=== PATIENT | male | born 1995 | race Caucasian/White ===

== ENCOUNTER 2023-07-13 18:47 | Emergency (ER) | payer SELFPAY ==
[2023-07-13 18:55] VITALS: BP 129/85; PULSE 87; RESP 20; TEMP 98.1; BMI 27.4
[2023-07-13 20:12] LABS: EPI CELLS 1 /uL (0-25.1); HYALINE CASTS 0 /uL (0-3.1); URINE APPEARANCE CLEAR; URINE BACTERIA 2 /uL (0-1359); URINE BILIRUBIN NEGATIVE (NEGATIVE); URINE COLOR YELLOW; URINE GLUCOSE (UA) NEGATIVE (NEGATIVE); URINE KETONE NEGATIVE (NEGATIVE); URINE LEUK ESTERASE TRACE (NEGATIVE); URINE NITRITE NEGATIVE (NEGATIVE); URINE PROTEIN NEGATIVE (NEGATIVE); URINE RBC 4 /uL (0-23.9); URINE UROBILINOGEN 0.2 mg/dL (0.2-1.0); URINE WBC 44 /uL (0-25.8)
[2023-07-13 20:50] LABS: BASO % 0.9 % (0-2.0); EOS % 8.3 % (0-4.5); HEMATOCRIT 41.2 % (35.4-49); HEMOGLOBIN 14.2 GM/dL (11.7-16.9); LYMPH % 29.6 % (8-40); MCH 29.2 pg (25.7-33.7); MCHC 34.6 g/dl (32.0-35.9); MEAN CELL VOLUME 84.5 fl (80-96); MEAN PLT VOLUME 8.5 fl (7.5-11.1); MONO % 4.7 % (3.8-10.2); NEUT % 56.5 % (42.8-82.8); PLATELET COUNT 253 10^3/uL (134-434); RBC 4.87 M/mm3 (4.00-5.60); RDW 13.7 % (11.9-15.9); WHITE BLOOD COUNT 11.2 K/mm3 (4.0-10.0)
[2023-07-13 21:05] LABS: ALBUMIN 4.1 g/dl (3.4-5.0); CALCIUM 9.5 mg/dL (8.5-10.1)
[2023-07-13 21:07] LABS: BLOOD UREA NITROGEN 10.4 mg/dL (7-18)
[2023-07-13 21:09] LABS: CREATININE 0.8 mg/dL (0.55-1.3)
[2023-07-13 21:11] LABS: TOT PROT 7.5 g/dl (6.4-8.2)
[2023-07-13 21:15] LABS: BILIRUBIN,TOTAL 0.3 mg/dL (0.2-1)
== END 2023-07-13 22:55 | disposition home or self-care (01) ==
LOC: JER 18:47 → JERFT 18:47
DX: M54.50 Low back pain, unspecified (principal); R30.0 Dysuria
CPT/HCPCS: 36415; 74177-TC; 80053; 81003; 85025; 87086; 87491; 87591; 99285-25; Q9967